=== PATIENT | female | born 1970 | race Caucasian/White ===

== ENCOUNTER → 2019-08-20 11:16 | Outpatient (BNVA) | payer BC, SELFPAY | PROVIDERS: Family Provider Registered Nurse; PCP Registered Nurse; Visit Provider Nurse Practitioner Family | DX: D64.9 Anemia, unspecified (principal); R32 Unspecified urinary incontinence; N95.1 Menopausal and female climacteric states; E78.2 Mixed hyperlipidemia; R53.83 Other fatigue; F32.9 Major depressive disorder, single episode, unspecified; E55.9 Vitamin D deficiency, unspecified; F41.9 Anxiety disorder, unspecified; Z79.899 Other long term (current) drug therapy | CPT/HCPCS: 36415; 80053; 80061; 81001; 82306; 82607; 83036; 83540; 84146; 84439; 84443; 84481; 85025 ==

== ENCOUNTER 2019-12-06 08:46 | Outpatient (CLI) | payer BC, SELFPAY ==
--- NOTE | 2019-12-06 08:45 | US_ITS ---
WS: [id number] TRANSABDOMINAL PELVIC AND TRANSVAGINAL PELVIC ULTRASOUND HISTORY: extended bleeding COMPARISON: 02/14/2014 Uterus: 9.4 cm x 5.3 cm x 4.7 cm. Normal size anteverted uterus. No fibroid or mass. Endometrium: 1.7 cm. Mild diffuse thickening of the endometrium. No color Doppler obtained. Right ovary: 1.0 cm x 2.3 cm x 1.6 cm. Normal size and vascularity. Normal color Doppler. Left ovary: 2.8 cm x 2.6 cm x 1.9 cm. By history partial LEFT oophorectomy. Small caliber ovary. No a bnormality. Small nabothian cysts. No free fluid. US/US pelvic with transvaginal IMPRESSION: 1. Thickened heterogeneous endometrium. May be due to endometrial hyperplasia. Polyp or neoplasm is not excluded. Short-term transvaginal ultrasound follow-u p is recommended versus hysteroscopy. 2. No fibroid.
== END 2019-12-06 08:47 | disposition home or self-care (01) ==
LOC: RAD 08:48
PROVIDERS: PCP Registered Nurse; Visit Provider Nurse Practitioner Family
DX: N92.1 Excessive and frequent menstruation with irregular cycle (principal); R93.89 Abnormal findings on diagnostic imaging of other specified body structures
CPT/HCPCS: 76830; 76856